=== PATIENT | male | born 1950 | race Caucasian/White ===

== ENCOUNTER 2022-10-06 02:09 | Inpatient (IN) | payer OTHER ==
[2022-10-06 02:41] LABS: MCH 29.2 pg (25.7-33.7); MEAN CELL VOLUME 91.2 fl (80-96); MEAN PLT VOLUME 8.8 fl (7.5-11.1); PLATELET COUNT 275 10^3/uL (134-434); RBC 3.07 M/mm3 (4.00-5.60); RDW 20.2 % (11.9-15.9)
[2022-10-06 02:48] LABS: ADD RBC MORPHOLOGY YES; WHITE BLOOD COUNT 56.2 K/mm3 (4.0-10.0)
[2022-10-06 02:49] LABS: INR 1.7 (0.83-1.09); PROTHROMBIN TIME (PATIENT) 19.6 SEC (9.7-13.0)
[2022-10-06 02:51] LABS: ACTIVATED PTT 31.3 SECONDS (25.2-36.5)
[2022-10-06] MEDS ORDERED: VANCOMYCIN 1,000 MG in DEXTROSE 5%-WATER - 250 ML IVPB ONE (02:52)
[2022-10-06 03:01] LABS: CALCIUM 10.4 mg/dL (8.5-10.1)
[2022-10-06] MEDS ORDERED: VANCOMYCIN/WATER FOR INJ (PEG) 1,000 MG/200 ML BAG IVPB ONE ×2 (03:01→04:01)
[2022-10-06 03:02] LABS: ALBUMIN 1.8 g/dl (3.4-5.0); BLOOD UREA NITROGEN 70.2 mg/dL (7-18)
[2022-10-06] MEDS ORDERED: RAPID SEQUENCE INTUBATION KIT NR ONE (03:04)
[2022-10-06 03:06] LABS: BILIRUBIN,TOTAL 0.4 mg/dL (0.2-1); TOT PROT 7.3 g/dl (6.4-8.2)
[2022-10-06 03:13] LABS: VENOUS BASE EXCESS 2.1 mmol/L (-2-2); VENOUS PCO2 55.6 mmHg (38-52); VENOUS PH 7.329 (7.310-7.410)
[2022-10-06] MEDS ORDERED: NOREPINEPHRINE BITARTRATE 4 MG/4 ML ML IV ONE ×2 (03:13→03:20)
[2022-10-06] MEDS ORDERED: NOREPINEPHRINE BITARTRATE 4,000 MCG in DEXTROSE 5%-WATER - 496 ML IV SCH (03:15)
[2022-10-06 03:19] LABS: LACTIC ACID 3.4 mmol/L (0.4-2.0)
[2022-10-06] MEDS ORDERED: NOREPINEPHRINE BITARTRATE 8,000 MCG in DEXTROSE 5%-WATER - 492 ML IV SCH (03:30)
[2022-10-06] MEDS ORDERED: NOREPINEPHRINE BITARTRATE 8,000 MCG in SODIUM CHLORIDE 492 ML IV SCH (03:30)
[2022-10-06] MEDS ORDERED: ACETAMINOPHEN 1000 MG/100 ML BAG IVPB ONE (04:00)
[2022-10-06 05:38] LABS: ANISOCYTOSIS 2+; MACROCYTOSIS 1+; OVALOCYTE 2+
[2022-10-06 06:35] LABS: LACTIC ACID 2.9 mmol/L (0.4-2.0)
[2022-10-06 06:44] LABS: EPI CELLS 33 /uL (0-25.1); HYALINE CASTS 17 /uL (0-3.1); PH,URINE 6.5 (5.0-8.0); URINE APPEARANCE CLOUDY; URINE BACTERIA 79 /uL (0-1359); URINE BILIRUBIN NEGATIVE (NEGATIVE); URINE COLOR DK YELLOW; URINE GLUCOSE (UA) TRACE (NEGATIVE); URINE KETONE TRACE (NEGATIVE); URINE LEUK ESTERASE 1+ (NEGATIVE); URINE NITRITE NEGATIVE (NEGATIVE); URINE PROTEIN 2+ (NEGATIVE); URINE UROBILINOGEN 0.2 mg/dL (0.2-1.0); URINE WBC 696 /uL (0-25.8)
[2022-10-06] MEDS: NOREPINEPHRINE 0.9 % NACL 8 MG/250 ML BAG IVPB SCH ×2 (06:53→20:03)
[2022-10-06] MEDS: PIPERACILLIN/TAZOB 2.25 GM 2.25 GM in DEXTROSE 5%-WATER - 50 ML IVPB SCH ×2 (07:31→09:35)
[2022-10-06] MEDS ORDERED: PIPERACILLIN/TAZOB 2.25 GM 2.25 GM in DEXTROSE 5%-WATER - 50 ML IVPB SCH (09:00)
[2022-10-06] MEDS: MUPIROCIN 2% TOPICAL OINTMENT FOR DECOLONIZATION NS SCH ×2 (09:35→21:40)
[2022-10-06] MEDS: levETIRAcetam 500 MG/5 ML ORAL SOLUTION (UNIT-DOSE CUPS) PEG SCH ×2 (09:35→21:40)
[2022-10-06] MEDS: FAMOTIDINE 40 MG/5 ML ORAL SUSPENSION PEG SCH (09:35)
[2022-10-06] MEDS: AMIODARONE HCL 200 MG TABLET PEG SCH ×2 (09:36→21:40)
[2022-10-06 09:52] LABS: URINE RBC 103.5 /uL (0-23.9); YEAST NEGATIVE (NEGATIVE)
[2022-10-06 13:45] VITALS: BMI 19.3
[2022-10-06] MEDS: PIPERACILLIN/TAZOB 3.375 GM 3.375 GM in DEXTROSE 5%-WATER - 50 ML IVPB SCH (18:10)
[2022-10-06] MEDS: CHLORHEXIDINE GLUCONATE 4% CLEANSER FOR DECOLONIZATION TP SCH (21:40)
[2022-10-07] MEDS: PIPERACILLIN/TAZOB 3.375 GM 3.375 GM in DEXTROSE 5%-WATER - 50 ML IVPB SCH ×3 (01:34→17:30)
[2022-10-07 07:26] LABS: HEMATOCRIT 19.7 % (35.4-49); MCH 29.9 pg (25.7-33.7); MCHC 33.3 g/dl (32.0-35.9); MEAN PLT VOLUME 9.1 fl (7.5-11.1); PLATELET COUNT 178 10^3/uL (134-434); RBC 2.19 M/mm3 (4.00-5.60); WHITE BLOOD COUNT 24.8 K/mm3 (4.0-10.0)
[2022-10-07 07:39] LABS: HEMOGLOBIN 6.6 GM/dL (11.7-16.9)
[2022-10-07 07:45] LABS: CALCIUM 9.5 mg/dL (8.5-10.1)
[2022-10-07 07:46] LABS: BLOOD UREA NITROGEN 65.1 mg/dL (7-18); MAGNESIUM 1.7 mg/dL (1.8-2.4)
[2022-10-07 07:49] LABS: CREATININE 1.5 mg/dL (0.55-1.3); PHOSPHOROUS 3.4 mg/dL (2.5-4.9)
[2022-10-07 07:50] LABS: BILIRUBIN,TOTAL 0.4 mg/dL (0.2-1); TOT PROT 5.3 g/dl (6.4-8.2)
[2022-10-07 08:24] LABS: ALBUMIN 1.4 g/dl (3.4-5.0)
[2022-10-07 08:32] LABS: BASO % 0.1 % (0-2.0); EOS % 1.3 % (0-4.5); HEMATOCRIT 20.7 % (35.4-49); LYMPH % 6.2 % (8-40); MCHC 33.5 g/dl (32.0-35.9); MEAN CELL VOLUME 89.5 fl (80-96); MONO % 3.3 % (3.8-10.2); NEUT % 89.1 % (42.8-82.8); PLATELET COUNT 172 10^3/uL (134-434); RBC 2.31 M/mm3 (4.00-5.60); RDW 19.9 % (11.9-15.9)
[2022-10-07 08:35] LABS: HEMOGLOBIN 6.9 GM/dL (11.7-16.9)
[2022-10-07] MEDS: NOREPINEPHRINE 0.9 % NACL 8 MG/250 ML BAG IVPB SCH (09:14)
[2022-10-07] MEDS: POTASSIUM CHLORIDE 20 MEQ PREMIX IVPB 100 ML IVPB SCH ×2 (09:14→10:41)
[2022-10-07 09:30] LABS: ANISOCYTOSIS 1+; MACROCYTOSIS 1+
[2022-10-07] MEDS: levETIRAcetam 500 MG/5 ML ORAL SOLUTION (UNIT-DOSE CUPS) PEG SCH ×2 (09:32→21:29)
[2022-10-07] MEDS: FAMOTIDINE 40 MG/5 ML ORAL SUSPENSION PEG SCH (09:32)
[2022-10-07] MEDS: ASCORBIC ACID 500 MG/5 ML UNIT DOSE CUP NGT SCH (09:33)
[2022-10-07] MEDS: MULTIVIT-MINERALS ORAL LIQUID NGT SCH (09:33)
[2022-10-07] MEDS: AMIODARONE HCL 200 MG TABLET PEG SCH ×2 (09:33→21:29)
[2022-10-07] MEDS: MUPIROCIN 2% TOPICAL OINTMENT FOR DECOLONIZATION NS SCH ×2 (09:33→21:29)
[2022-10-07 09:51] LABS: ANISOCYTOSIS 1+; MACROCYTOSIS 1+
[2022-10-07] MEDS ORDERED: LACTATED RINGERS SOLUTION 1,000 ML/1,000 ML INFUS.BAG IV STA (11:08)
[2022-10-07] MEDS ORDERED: VANCOMYCIN/WATER FOR INJ (PEG) 1,000 MG/200 ML BAG IVPB ONE (12:15)
[2022-10-07] MEDS: AMINO ACIDS/PROTEIN HYDROLYS 30 ML LIQUID.PKT PEG SCH (17:30)
[2022-10-07 17:44] LABS: HEMATOCRIT 23.1 % (35.4-49); HEMOGLOBIN 7.5 GM/dL (11.7-16.9); MCH 29.1 pg (25.7-33.7); MCHC 32.5 g/dl (32.0-35.9); MEAN CELL VOLUME 89.4 fl (80-96); PLATELET COUNT 172 10^3/uL (134-434); RBC 2.58 M/mm3 (4.00-5.60); RDW 18.8 % (11.9-15.9); WHITE BLOOD COUNT 22.3 K/mm3 (4.0-10.0)
[2022-10-07 18:40] LABS: ANISOCYTOSIS 0; HELMET CELLS 0; HOWELL-JOLLY BODIES 0; MACROCYTOSIS 0; OVALOCYTE 0; ROULEAU 0; SICKELED CELLS 0; TARGET CELLS 0; TEAR DROP CELLS 0; TOXIC GRANULATION 0
[2022-10-07] MEDS: CHLORHEXIDINE GLUCONATE 4% CLEANSER FOR DECOLONIZATION TP SCH (21:29)
[2022-10-08] MEDS: PIPERACILLIN/TAZOB 3.375 GM 3.375 GM in DEXTROSE 5%-WATER - 50 ML IVPB SCH ×3 (01:14→17:47)
[2022-10-08] MEDS: NOREPINEPHRINE 0.9 % NACL 8 MG/250 ML BAG IVPB SCH (05:54)
[2022-10-08 08:21] LABS: BASO % 0.2 % (0-2.0); EOS % 0.3 % (0-4.5); HEMATOCRIT 24.5 % (35.4-49); HEMOGLOBIN 8.2 GM/dL (11.7-16.9); LYMPH % 7.5 % (8-40); MCH 30.2 pg (25.7-33.7); MCHC 33.5 g/dl (32.0-35.9); MEAN CELL VOLUME 90.2 fl (80-96); MEAN PLT VOLUME 9.4 fl (7.5-11.1); MONO % 2.8 % (3.8-10.2); NEUT % 89.2 % (42.8-82.8); PLATELET COUNT 184 10^3/uL (134-434); RBC 2.71 M/mm3 (4.00-5.60); RDW 19.3 % (11.9-15.9); WHITE BLOOD COUNT 16.3 K/mm3 (4.0-10.0)
[2022-10-08] MEDS: AMINO ACIDS/PROTEIN HYDROLYS 30 ML LIQUID.PKT PEG SCH ×3 (08:38→17:47)
[2022-10-08 09:09] LABS: ALBUMIN 1.4 g/dl (3.4-5.0); CALCIUM 9.6 mg/dL (8.5-10.1)
[2022-10-08 09:14] LABS: TOT PROT 5.6 g/dl (6.4-8.2)
[2022-10-08 09:18] LABS: BILIRUBIN,TOTAL 0.4 mg/dL (0.2-1)
[2022-10-08] MEDS: MUPIROCIN 2% TOPICAL OINTMENT FOR DECOLONIZATION NS SCH (09:39)
[2022-10-08] MEDS: MULTIVIT-MINERALS ORAL LIQUID NGT SCH (09:40)
[2022-10-08] MEDS: levETIRAcetam 500 MG/5 ML ORAL SOLUTION (UNIT-DOSE CUPS) PEG SCH ×2 (09:40→21:31)
[2022-10-08] MEDS: AMIODARONE HCL 200 MG TABLET PEG SCH ×2 (09:40→21:31)
[2022-10-08 09:50] LABS: BLOOD UREA NITROGEN 59.6 mg/dL (7-18); CREATININE 1.2 mg/dL (0.55-1.3)
[2022-10-08] MEDS ORDERED: PANTOPRAZOLE SODIUM 40 MG VIAL IVPUSH SCH (10:00)
[2022-10-08] MEDS: ASCORBIC ACID 500 MG/5 ML UNIT DOSE CUP NGT SCH (10:38)
[2022-10-08] MEDS ORDERED: POTASSIUM CHLORIDE ORAL LIQUID 20 MEQ/15 ML PO ONE (13:08)
[2022-10-08] MEDS: ALBUTEROL SO4 2.5/IPRATROPIUM 0.5 INH SOL 3 ML VIAL.NEB. NEB SCH ×2 (17:51→19:50)
[2022-10-09] MEDS: PIPERACILLIN/TAZOB 3.375 GM 3.375 GM in DEXTROSE 5%-WATER - 50 ML IVPB SCH ×3 (01:31→17:26)
[2022-10-09] MEDS: ALBUTEROL SO4 2.5/IPRATROPIUM 0.5 INH SOL 3 ML VIAL.NEB. NEB SCH (07:57)
[2022-10-09] MEDS: AMINO ACIDS/PROTEIN HYDROLYS 30 ML LIQUID.PKT PEG SCH ×3 (09:21→17:26)
[2022-10-09] MEDS: AMIODARONE HCL 200 MG TABLET PEG SCH ×2 (09:21→23:00)
[2022-10-09] MEDS: levETIRAcetam 500 MG/5 ML ORAL SOLUTION (UNIT-DOSE CUPS) PEG SCH ×2 (09:21→23:00)
[2022-10-09] MEDS: MULTIVIT-MINERALS ORAL LIQUID NGT SCH (09:22)
[2022-10-09] MEDS: ASCORBIC ACID 500 MG/5 ML UNIT DOSE CUP NGT SCH (09:22)
[2022-10-09] MEDS ORDERED: PANTOPRAZOLE SODIUM 40 MG VIAL IVPUSH SCH (10:00)
[2022-10-09] MEDS ORDERED: ALBUTEROL SO4 2.5/IPRATROPIUM 0.5 INH SOL 3 ML VIAL.NEB. NEB PRN (10:17)
[2022-10-09] MEDS: FAMOTIDINE 40 MG/5 ML ORAL SUSPENSION PEG SCH (12:43)
[2022-10-09] MEDS: INSULIN SLIDING SCALE (NOVOLOG) 1 VIAL SQ SCH ×3 (12:43→23:06)
[2022-10-10] MEDS: PIPERACILLIN/TAZOB 3.375 GM 3.375 GM in DEXTROSE 5%-WATER - 50 ML IVPB SCH ×3 (02:11→18:24)
[2022-10-10] MEDS: INSULIN SLIDING SCALE (NOVOLOG) 1 VIAL SQ SCH ×4 (06:33→21:38)
[2022-10-10] MEDS: AMINO ACIDS/PROTEIN HYDROLYS 30 ML LIQUID.PKT PEG SCH ×3 (09:33→16:43)
[2022-10-10] MEDS: levETIRAcetam 500 MG/5 ML ORAL SOLUTION (UNIT-DOSE CUPS) PEG SCH ×2 (09:33→21:30)
[2022-10-10] MEDS: AMIODARONE HCL 200 MG TABLET PEG SCH ×2 (09:34→21:30)
[2022-10-10] MEDS: ASCORBIC ACID 500 MG/5 ML UNIT DOSE CUP NGT SCH (09:34)
[2022-10-10] MEDS: MULTIVIT-MINERALS ORAL LIQUID NGT SCH (09:34)
[2022-10-10] MEDS: FAMOTIDINE 40 MG/5 ML ORAL SUSPENSION PEG SCH (09:34)
[2022-10-10 09:40] LABS: CALCIUM 8.7 mg/dL (8.5-10.1)
[2022-10-10 09:41] LABS: ALBUMIN 1.6 g/dl (3.4-5.0); MAGNESIUM 1.6 mg/dL (1.8-2.4)
[2022-10-10 09:44] LABS: CREATININE 1.1 mg/dL (0.55-1.3)
[2022-10-10 09:46] LABS: BILIRUBIN,TOTAL 0.2 mg/dL (0.2-1); TOT PROT 5.6 g/dl (6.4-8.2)
[2022-10-10 09:48] LABS: BLOOD UREA NITROGEN 59.1 mg/dL (7-18)
[2022-10-10] MEDS ORDERED: POTASSIUM CHLORIDE ORAL LIQUID 20 MEQ/15 ML PO ONE (14:56)
[2022-10-10] MEDS ORDERED: MAGNESIUM 2GM/50ML STERILE WATER IVPB IVPB ONE (14:56)
[2022-10-10] MEDS ORDERED: VANCOMYCIN 1 GM/200 ML PREMIX BAG (RESTRICTED TO ID ONLY) IVPB ONE (17:59)
[2022-10-11] MEDS: PIPERACILLIN/TAZOB 3.375 GM 3.375 GM in DEXTROSE 5%-WATER - 50 ML IVPB SCH ×3 (01:34→17:52)
[2022-10-11] MEDS: INSULIN SLIDING SCALE (NOVOLOG) 1 VIAL SQ SCH ×4 (06:00→22:18)
[2022-10-11] MEDS ORDERED: ACETAMINOPHEN 325 MG TABLET (FP) PO ONE (06:55)
[2022-10-11 07:17] LABS: HEMATOCRIT 27.4 % (35.4-49); HEMOGLOBIN 8.8 GM/dL (11.7-16.9); MCH 29.2 pg (25.7-33.7); MCHC 32.1 g/dl (32.0-35.9); MEAN CELL VOLUME 90.9 fl (80-96); MEAN PLT VOLUME 8.6 fl (7.5-11.1); PLATELET COUNT 280 10^3/uL (134-434); RBC 3.01 M/mm3 (4.00-5.60); WHITE BLOOD COUNT 18.4 K/mm3 (4.0-10.0)
[2022-10-11 07:37] LABS: CALCIUM 8.7 mg/dL (8.5-10.1); MAGNESIUM 2.1 mg/dL (1.8-2.4)
[2022-10-11 07:38] LABS: ALBUMIN 1.5 g/dl (3.4-5.0)
[2022-10-11 07:42] LABS: BILIRUBIN,TOTAL 0.3 mg/dL (0.2-1); TOT PROT 5.7 g/dl (6.4-8.2)
[2022-10-11 08:12] LABS: IRON SERUM 31 ug/dL (50-175); TOTAL IRON BINDING CAPACITY 178 ug/dL (250-450)
[2022-10-11] MEDS: AMIODARONE HCL 200 MG TABLET PEG SCH ×2 (11:16→22:16)
[2022-10-11] MEDS: AMINO ACIDS/PROTEIN HYDROLYS 30 ML LIQUID.PKT PEG SCH ×3 (11:16→17:51)
[2022-10-11] MEDS: levETIRAcetam 500 MG/5 ML ORAL SOLUTION (UNIT-DOSE CUPS) PEG SCH ×2 (11:16→22:16)
[2022-10-11] MEDS: FAMOTIDINE 40 MG/5 ML ORAL SUSPENSION PEG SCH (11:17)
[2022-10-11] MEDS: MULTIVIT-MINERALS ORAL LIQUID NGT SCH (11:17)
[2022-10-11] MEDS: ASCORBIC ACID 500 MG/5 ML UNIT DOSE CUP NGT SCH (11:17)
[2022-10-11] MEDS ORDERED: POTASSIUM CHLORIDE ORAL LIQUID 20 MEQ/15 ML PO ONE (16:53)
[2022-10-12] MEDS: PIPERACILLIN/TAZOB 3.375 GM 3.375 GM in DEXTROSE 5%-WATER - 50 ML IVPB SCH ×3 (02:55→18:21)
[2022-10-12] MEDS: INSULIN SLIDING SCALE (NOVOLOG) 1 VIAL SQ SCH ×4 (07:11→21:31)
[2022-10-12] MEDS: levETIRAcetam 500 MG/5 ML ORAL SOLUTION (UNIT-DOSE CUPS) PEG SCH ×2 (10:24→21:30)
[2022-10-12] MEDS: AMIODARONE HCL 200 MG TABLET PEG SCH ×2 (10:25→21:30)
[2022-10-12] MEDS: ASCORBIC ACID 500 MG/5 ML UNIT DOSE CUP NGT SCH (10:25)
[2022-10-12] MEDS: AMINO ACIDS/PROTEIN HYDROLYS 30 ML LIQUID.PKT PEG SCH ×3 (10:25→19:08)
[2022-10-12] MEDS: FAMOTIDINE 40 MG/5 ML ORAL SUSPENSION PEG SCH (10:25)
[2022-10-12] MEDS: MULTIVIT-MINERALS ORAL LIQUID NGT SCH (10:39)
[2022-10-13] MEDS: PIPERACILLIN/TAZOB 3.375 GM 3.375 GM in DEXTROSE 5%-WATER - 50 ML IVPB SCH ×3 (02:11→18:06)
[2022-10-13] MEDS: INSULIN SLIDING SCALE (NOVOLOG) 1 VIAL SQ SCH ×4 (06:56→21:46)
[2022-10-13 09:52] LABS: HEMATOCRIT 29.2 % (35.4-49); HEMOGLOBIN 9.2 GM/dL (11.7-16.9); MCH 28.9 pg (25.7-33.7); MCHC 31.7 g/dl (32.0-35.9); MEAN CELL VOLUME 91.2 fl (80-96); MEAN PLT VOLUME 9.1 fl (7.5-11.1); PLATELET COUNT 335 10^3/uL (134-434); RDW 19.2 % (11.9-15.9); WHITE BLOOD COUNT 14.1 K/mm3 (4.0-10.0)
[2022-10-13 09:56] LABS: CALCIUM 8.2 mg/dL (8.5-10.1)
[2022-10-13 09:57] LABS: ALBUMIN 1.6 g/dl (3.4-5.0); BLOOD UREA NITROGEN 56.8 mg/dL (7-18)
[2022-10-13 10:01] LABS: BILIRUBIN,TOTAL 0.3 mg/dL (0.2-1); TOT PROT 5.7 g/dl (6.4-8.2)
[2022-10-13] MEDS: AMIODARONE HCL 200 MG TABLET PEG SCH ×2 (10:36→21:46)
[2022-10-13] MEDS: AMINO ACIDS/PROTEIN HYDROLYS 30 ML LIQUID.PKT PEG SCH ×3 (10:36→18:07)
[2022-10-13] MEDS: levETIRAcetam 500 MG/5 ML ORAL SOLUTION (UNIT-DOSE CUPS) PEG SCH ×2 (10:36→21:46)
[2022-10-13] MEDS: FAMOTIDINE 40 MG/5 ML ORAL SUSPENSION PEG SCH (10:37)
[2022-10-13] MEDS: MULTIVIT-MINERALS ORAL LIQUID NGT SCH (10:37)
[2022-10-13] MEDS: ASCORBIC ACID 500 MG/5 ML UNIT DOSE CUP NGT SCH (10:37)
[2022-10-13 10:42] LABS: ANISOCYTOSIS 2+; MACROCYTOSIS 0
[2022-10-13] MEDS ORDERED: SODIUM CHLORIDE 0.45% 1,000 ML IV SCH (12:30)
[2022-10-14] MEDS: PIPERACILLIN/TAZOB 3.375 GM 3.375 GM in DEXTROSE 5%-WATER - 50 ML IVPB SCH ×4 (01:41→20:17)
[2022-10-14] MEDS: INSULIN SLIDING SCALE (NOVOLOG) 1 VIAL SQ SCH ×4 (06:29→21:42)
[2022-10-14] MEDS: AMINO ACIDS/PROTEIN HYDROLYS 30 ML LIQUID.PKT PEG SCH ×3 (08:57→17:44)
[2022-10-14] MEDS: ASCORBIC ACID 500 MG/5 ML UNIT DOSE CUP NGT SCH (09:00)
[2022-10-14] MEDS: FAMOTIDINE 40 MG/5 ML ORAL SUSPENSION PEG SCH (09:00)
[2022-10-14] MEDS: MULTIVIT-MINERALS ORAL LIQUID NGT SCH (09:00)
[2022-10-14] MEDS: AMIODARONE HCL 200 MG TABLET PEG SCH ×2 (09:00→21:02)
[2022-10-14] MEDS: levETIRAcetam 500 MG/5 ML ORAL SOLUTION (UNIT-DOSE CUPS) PEG SCH ×2 (09:00→21:02)
[2022-10-14 09:49] LABS: BASO % 0.4 % (0-2.0); EOS % 0.2 % (0-4.5); HEMATOCRIT 28.7 % (35.4-49); LYMPH % 10.7 % (8-40); MCH 28.5 pg (25.7-33.7); MCHC 31.3 g/dl (32.0-35.9); MEAN CELL VOLUME 91.1 fl (80-96); MEAN PLT VOLUME 9.1 fl (7.5-11.1); MONO % 5.5 % (3.8-10.2); NEUT % 83.2 % (42.8-82.8); PLATELET COUNT 350 10^3/uL (134-434); RBC 3.15 M/mm3 (4.00-5.60); WHITE BLOOD COUNT 18.9 K/mm3 (4.0-10.0)
[2022-10-14 10:49] LABS: ALBUMIN 1.6 g/dl (3.4-5.0); BLOOD UREA NITROGEN 60.2 mg/dL (7-18); CALCIUM 8.1 mg/dL (8.5-10.1)
[2022-10-14 10:52] LABS: BILIRUBIN,TOTAL 0.3 mg/dL (0.2-1); TOT PROT 5.2 g/dl (6.4-8.2)
[2022-10-14] MEDS ORDERED: ACETAMINOPHEN 650 MG/20.3 ML ORAL SOLUTION (CUPS) PEG ONE (20:28)
[2022-10-15] MEDS: PIPERACILLIN/TAZOB 3.375 GM 3.375 GM in DEXTROSE 5%-WATER - 50 ML IVPB SCH ×3 (02:42→17:18)
[2022-10-15] MEDS: INSULIN SLIDING SCALE (NOVOLOG) 1 VIAL SQ SCH ×4 (06:23→22:31)
[2022-10-15] MEDS ORDERED: ACETAMINOPHEN 650 MG/20.3 ML ORAL SOLUTION (CUPS) PO PRN (09:28)
[2022-10-15 09:29] LABS: ALBUMIN 1.5 g/dl (3.4-5.0); BLOOD UREA NITROGEN 62.5 mg/dL (7-18)
[2022-10-15 09:31] LABS: CALCIUM 8.3 mg/dL (8.5-10.1)
[2022-10-15 09:32] LABS: BILIRUBIN,TOTAL 0.2 mg/dL (0.2-1); CREATININE 0.9 mg/dL (0.55-1.3)
[2022-10-15] MEDS: AMINO ACIDS/PROTEIN HYDROLYS 30 ML LIQUID.PKT PEG SCH ×3 (10:00→17:18)
[2022-10-15] MEDS: AMIODARONE HCL 200 MG TABLET PEG SCH ×2 (10:00→21:52)
[2022-10-15] MEDS: levETIRAcetam 500 MG/5 ML ORAL SOLUTION (UNIT-DOSE CUPS) PEG SCH ×2 (10:00→21:52)
[2022-10-15] MEDS: FAMOTIDINE 40 MG/5 ML ORAL SUSPENSION PEG SCH (10:07)
[2022-10-15] MEDS: MULTIVIT-MINERALS ORAL LIQUID NGT SCH (10:07)
[2022-10-15] MEDS: ASCORBIC ACID 500 MG/5 ML UNIT DOSE CUP NGT SCH (10:07)
[2022-10-15] MEDS ORDERED: COLLAGENASE CLOSTRIDIUM HIST. 30 GRAMS TUBE TP SCH (15:15)
[2022-10-15] MEDS: COLLAGENASE CLOSTRIDIUM HIST. 30 GRAMS TUBE TP SCH (17:32)
[2022-10-16] MEDS: PIPERACILLIN/TAZOB 3.375 GM 3.375 GM in DEXTROSE 5%-WATER - 50 ML IVPB SCH ×3 (01:21→17:02)
[2022-10-16] MEDS: INSULIN SLIDING SCALE (NOVOLOG) 1 VIAL SQ SCH ×4 (06:27→22:40)
[2022-10-16 09:11] LABS: CALCIUM 8.2 mg/dL (8.5-10.1)
[2022-10-16 09:12] LABS: ALBUMIN 1.6 g/dl (3.4-5.0); BLOOD UREA NITROGEN 61.2 mg/dL (7-18)
[2022-10-16 09:16] LABS: BILIRUBIN,TOTAL 0.6 mg/dL (0.2-1); TOT PROT 5.1 g/dl (6.4-8.2)
[2022-10-16] MEDS: AMINO ACIDS/PROTEIN HYDROLYS 30 ML LIQUID.PKT PEG SCH ×3 (09:17→17:02)
[2022-10-16] MEDS: MULTIVIT-MINERALS ORAL LIQUID NGT SCH (09:17)
[2022-10-16] MEDS: levETIRAcetam 500 MG/5 ML ORAL SOLUTION (UNIT-DOSE CUPS) PEG SCH ×2 (09:17→22:29)
[2022-10-16] MEDS: AMIODARONE HCL 200 MG TABLET PEG SCH ×2 (09:17→22:29)
[2022-10-16] MEDS: ASCORBIC ACID 500 MG/5 ML UNIT DOSE CUP NGT SCH (09:18)
[2022-10-16] MEDS: COLLAGENASE CLOSTRIDIUM HIST. 30 GRAMS TUBE TP SCH (09:18)
[2022-10-16] MEDS: FAMOTIDINE 40 MG/5 ML ORAL SUSPENSION PEG SCH (09:18)
[2022-10-16] MEDS: SODIUM CHLORIDE 0.45% 1,000 ML IV SCH (17:03)
[2022-10-17] MEDS: PIPERACILLIN/TAZOB 3.375 GM 3.375 GM in DEXTROSE 5%-WATER - 50 ML IVPB SCH ×2 (01:26→11:00)
[2022-10-17] MEDS: INSULIN SLIDING SCALE (NOVOLOG) 1 VIAL SQ SCH ×2 (06:22→12:01)
[2022-10-17] MEDS: SODIUM CHLORIDE 0.45% 1,000 ML IV SCH ×2 (07:06→14:00)
[2022-10-17 08:24] VITALS: RESP 17
[2022-10-17 08:32] LABS: HEMATOCRIT 28.3 % (35.4-49); HEMOGLOBIN 9.3 GM/dL (11.7-16.9); MCH 30.3 pg (25.7-33.7); MCHC 32.7 g/dl (32.0-35.9); MEAN CELL VOLUME 92.6 fl (80-96); MEAN PLT VOLUME 9.7 fl (7.5-11.1); PLATELET COUNT 337 10^3/uL (134-434); RBC 3.06 M/mm3 (4.00-5.60); RDW 19.1 % (11.9-15.9); WHITE BLOOD COUNT 24.7 K/mm3 (4.0-10.0)
[2022-10-17 08:53] LABS: CALCIUM 8.1 mg/dL (8.5-10.1)
[2022-10-17 08:55] LABS: BLOOD UREA NITROGEN 65.9 mg/dL (7-18)
[2022-10-17 08:56] LABS: CREATININE 0.9 mg/dL (0.55-1.3)
[2022-10-17] MEDS: levETIRAcetam 500 MG/5 ML ORAL SOLUTION (UNIT-DOSE CUPS) PEG SCH (10:20)
[2022-10-17] MEDS: AMIODARONE HCL 200 MG TABLET PEG SCH (10:20)
[2022-10-17] MEDS: MULTIVIT-MINERALS ORAL LIQUID NGT SCH (10:21)
[2022-10-17] MEDS: AMINO ACIDS/PROTEIN HYDROLYS 30 ML LIQUID.PKT PEG SCH ×2 (10:21→13:00)
[2022-10-17] MEDS: FAMOTIDINE 40 MG/5 ML ORAL SUSPENSION PEG SCH (10:22)
[2022-10-17] MEDS: ASCORBIC ACID 500 MG/5 ML UNIT DOSE CUP NGT SCH (10:22)
[2022-10-17 14:17] VITALS: PULSE 86
[2022-10-17 14:30] VITALS: BP 128/74; TEMP 98.3
[2022-10-17] MEDS: COLLAGENASE CLOSTRIDIUM HIST. 30 GRAMS TUBE TP SCH (15:40)
== END 2022-10-17 16:52 | DRG 870 ==
LOC: JER 02:09 → JERBED 02:49 → JICU 06:01 → J5S 10-08 14:58
PROVIDERS: ADMIT Internal Medicine Pulmonary Disease; ATTEND Family Medicine
PROC: 5A1955Z Respiratory Ventilation, Greater than 96 Consecutive Hours (ICD-10-PCS; principal; 2022-10-06)
DX: A41.89 Other specified sepsis (principal); J18.9 Pneumonia, unspecified organism; L89.154 Pressure ulcer of sacral region, stage 4; R65.21 Severe sepsis with septic shock; J96.21 Acute and chronic respiratory failure with hypoxia; R53.2 Functional quadriplegia; E87.20 Acidosis, unspecified; N17.9 Acute kidney failure, unspecified; I24.8 Other forms of acute ischemic heart disease; N39.0 Urinary tract infection, site not specified; G93.1 Anoxic brain damage, not elsewhere classified; E87.0 Hyperosmolality and hypernatremia; D64.9 Anemia, unspecified; E87.6 Hypokalemia; D72.829 Elevated white blood cell count, unspecified; G40.909 Epilepsy, unspecified, not intractable, without status epilepticus; J44.9 Chronic obstructive pulmonary disease, unspecified; Z95.2 Presence of prosthetic heart valve; Z99.81 Dependence on supplemental oxygen
CPT/HCPCS: 0241U-QW; 36415; 36430; 71045-TC-FY; 76775-TC; 80048; 80053; 81003; 82436; 82553; 82570; 82803; 82962; 83540; 83550; 83605; 83735; 84100; 84133; 84300; 84484; 85025; 85027; 85610; 85730; 86704; 86708; 86803; 86850; 86900; 86901; 86922; 87040; 87070; 87086; 87186; 87205; 87340; 87517; 93005; 93010; 94002; 94640; 99285-25; C9803-CS; G0480; P9058; U0003; U0005